=== PATIENT | female | born 1975 | race Caucasian/White ===

== ENCOUNTER 2022-07-20 12:50 | Emergency (ER) | payer MEDICARE, MEDICAID ==
[~2022-07-20] VITALS: Ht 167.6 cm; Wt 122.9 kg
[2022-07-20 14:45] VITALS: BP 140/87
[2022-07-20] MEDS ORDERED: MECL-111 PO (16:11)
[2022-07-20] MEDS ORDERED: SODIUM CHLORIDE 0.9% 1,000 ML IV ONE (16:15)
[2022-07-20] MEDS ORDERED: MECLIZINE HCL 25 MG TAB PO ONE (16:15)
[2022-07-20] MEDS ORDERED: ONDANSETRON HCL 4 MG/2 ML VIAL IV ONE (16:15)
[2022-07-20] MEDS ORDERED: ONDA-144 PO (18:15)
== END 2022-07-20 18:24 | disposition home or self-care (01) ==
LOC: ER 12:50
DX: A08.4 Viral intestinal infection, unspecified (principal); J45.909 Unspecified asthma, uncomplicated; Z20.822 Contact with and (suspected) exposure to COVID-19
CPT/HCPCS: 36415; 87426; 87804; 96361; 96374; 99283; J2405; J7030; J8597

== ENCOUNTER 2022-11-05 06:02 | Emergency (ER) | payer MEDICARE, MEDICAID ==
[~2022-11-05] VITALS: Ht 157.5 cm; Wt 111.3 kg
[~2022-11-05 06:02] MED LIST: MECL-111 PO; ONDA-144 PO
[2022-11-05 07:35] VITALS: BP 139/94
[2022-11-05] MEDS ORDERED: IBUP800T27 PO (08:08)
== END 2022-11-05 08:15 | disposition home or self-care (01) ==
LOC: ER 06:02
DX: S62.620A Displaced fracture of middle phalanx of right index finger, initial encounter for closed fracture (principal); J45.909 Unspecified asthma, uncomplicated; Z88.1 Allergy status to other antibiotic agents; Z88.6 Allergy status to analgesic agent; Z91.013 Allergy to seafood; X58.XXXA Exposure to other specified factors, initial encounter; Y93.89 Activity, other specified; Y92.89 Other specified places as the place of occurrence of the external cause; Y99.8 Other external cause status
CPT/HCPCS: 29130; 73140

== ENCOUNTER 2022-11-30 15:31 | Emergency (ER) | payer MEDICARE, MEDICAID ==
[~2022-11-30] VITALS: Ht 167.6 cm; Wt 117.6 kg
[~2022-11-30 15:31] MED LIST changes: +IBUP-1456 PO; -MECL-111 PO; +MECL-126 PO
[2022-11-30 15:56] VITALS: BP 125/90
[2022-11-30 16:40] LABS: Urine Bacteria FEW /hpf (None Seen); Urine Blood 1+ /uL (Negative); Urine Mucus FEW (None Seen); Urine Specific Gravity 1.022 (1.001-1.035); Urine WBC 2 /hpf (0 - 5)
[2022-11-30] MEDS ORDERED: ACET500T58 PO (19:52)
[2022-11-30] MEDS ORDERED: ZOFR4T PO (19:52)
[2022-11-30] MEDS ORDERED: AMOX875T4 PO (19:52)
[2022-11-30] MEDS ORDERED: ONDANSETRON ODT 4 MG TAB PO ONE (20:00)
[2022-11-30] MEDS ORDERED: cefTRIAXone SOD 1,000 MG VL IM ONE (20:30)
== END 2022-11-30 20:53 | disposition home or self-care (01) ==
LOC: ER 15:31
DX: J06.9 Acute upper respiratory infection, unspecified (principal); N39.0 Urinary tract infection, site not specified; R11.2 Nausea with vomiting, unspecified; J45.909 Unspecified asthma, uncomplicated; G43.909 Migraine, unspecified, not intractable, without status migrainosus; A08.4 Viral intestinal infection, unspecified; Z90.49 Acquired absence of other specified parts of digestive tract; Z98.51 Tubal ligation status; Z20.822 Contact with and (suspected) exposure to COVID-19
CPT/HCPCS: 36415; 81001; 87426; 87804; 99283; Q0162

== ENCOUNTER 2023-05-19 17:15 | Emergency (ER) | payer MEDICARE, MEDICAID ==
[~2023-05-19] VITALS: Ht 157.5 cm; Wt 112.4 kg
[~2023-05-19 17:15] MED LIST changes: +ACET500T58 PO; +AMOX875T4 PO; +ZOFR4T PO
[2023-05-19] MEDS ORDERED: PRED20TA2 PO (23:42)
[2023-05-19] MEDS ORDERED: ALBUAER3 IN (23:42)
[2023-05-19] MEDS ORDERED: CLIN-188 PO (23:42)
[2023-05-19] MEDS ORDERED: BENZ200C64 PO (23:42)
[2023-05-19] MEDS ORDERED: BENZLOZ2 MT (23:42)
[2023-05-19] MEDS ORDERED: IPRATROPIUM BROM 0.5 MG/2.5ML INH SOL NEB ONE (23:45)
[2023-05-19] MEDS ORDERED: ALBUTEROL MEDNEB 2.5 mg/3ml NEB NEB ONE (23:45)
[2023-05-19] MEDS ORDERED: DexAMETHasone SOD PHOS 10MG/1ML VIAL INJ IM ONE (23:45)
[2023-05-20 02:24] VITALS: BP 132/73; PULSE 88; RESP 18; TEMP 97.8; O2SAT 98
== END 2023-05-20 02:25 | disposition home or self-care (01) ==
LOC: ER 17:15
DX: R50.9 Fever, unspecified (principal); J03.90 Acute tonsillitis, unspecified; J45.909 Unspecified asthma, uncomplicated; Z90.49 Acquired absence of other specified parts of digestive tract
CPT/HCPCS: 94640; 96372; 99283; J1100; J7644